=== PATIENT | male | born 1970 | race Caucasian/White ===

== ENCOUNTER 2017-04-01 18:51 | Emergency (ER) | payer OTHER ==
[~2017-04-01] VITALS: Ht 185.4 cm; Wt 111.1 kg
[2017-04-01 18:56] VITALS: BP 124/85
[2017-04-01] MEDS ORDERED: AUGMENTIN 875-1 EACH PO (23:05)
[2017-04-01] MEDS ORDERED: NAPROSYN500 M1 PO (23:06)
--- NOTE | 2017-04-01 23:06 | ED SKIN/ALLERGY COMPLAINT ---
History of Present Illness General Chief Complaint: Skin Rash/ Abcess Stated Complaint: ?CYST ON THE BACK OF NECK Source: patient Exam Limitations: no limitations Vital Signs & Intake/Output Vital Signs & Intake/Output Vital Signs Date Time Temp Pulse Resp B/P B/P Pulse O2 O2 Flow FiO2 Mean Ox Delivery Rate 04/01 1856 98.4 88 18 124/85 98 Room Air Allergies Coded Allergies: No Known Allergies (04/01/17) Triage Note: 46 YO MALE TO ER C/O ?CYST TO BACK OF NECK X2 DAYS Triage Nurses Notes Reviewed? yes Onset: Gradual Duration: day(s): (2-4) Timing: remote history Severity: moderate Severity Numbers: 5 Location: POSTERIOR NECK Possible Factors: no cause identified No Modifying Factors: none HPI: Patient is a 46-year-old male presenting to the emergency department with chief complaint of questionable abscess or skin infection on the back of his neck that he noticed between 2 and 4 days ago. Symptoms are getting worse, just not getting better. Denies fevers or chills nausea vomiting chest pain or shortness of breath. History of similar symptoms in the past with a cyst. Denies any drainage from this area. Has been applying warm compresses with little relief. (Radha Dickerson) Reconcile Medications Atorvastatin Calcium 20 MG TABLET 1 TAB PO DAILY CHOL (Reported) Lisinopril 10 MG TABLET 1 TAB PO DAILY HTN (Reported) Metformin HCl 500 MG TABLET 1 TAB PO BID DM (Reported) Naproxen (Naprosyn) 500 MG TABLET 1 TAB PO BID PRN PAIN/INFLAMMATION (Pearl PELLETIER,Opal) Past History Travel History Traveled to [place] past 21 day No Medical History Any Pertinent Medical History? see below for history Neurological: NONE EENT: NONE Cardiovascular: NONE Respiratory: NONE Gastrointestinal: NONE Hepatic: NONE Renal: NONE Musculoskeletal: NONE Psychiatric: NONE Endocrine: diabetes Blood Disorders: NONE Cancer(s): NONE PIT LABORER/Reproductive: NONE Surgical History Surgical History: non-contributory Psychosocial History What is your primary language Martiniquais Tobacco Use: Never used Family History Hx Contributory? No (Radha Dickerson) Review of Systems Review of Systems Constitutional: Reports: no symptoms. Comments Review of systems: See HPI, All other systems negative. Constitutional, no chills fever or weight loss HEENT: No visual changes no sore throat no congestion Cardiovascular: No chest pain ,palpitation , orthopnea or ankle swelling Skin, no jaundice Respiratory: No dyspnea cough sputum or hemoptysis GI: No nausea no vomiting : No dysuria No hematuria Muscle skeletal: no back pain, no neck pain, Neurologic: No numbness , no headache Psych: No stress anxiety or depression,. Heme/endocrine: No bruising no bleeding no polyuria or polydipsia Immunology: No splenectomy or history of AIDS (Radha Dickerson) Physical Exam Physical Exam General Appearance: well developed/nourished, no apparent distress, alert, awake , comfortable Comments: Well-developed well-nourished person in no acute distress HEENT: Atraumatic, normocephalic. Neck: Normal inspection, full range of motion without difficulty or pain. Respiratory: No respiratory distress. Extremity: No edema Neuro: Alert oriented x3 Skin: Erythematous, firm, indurated circular lesion, minimally raised, approximately 3 cm in diameter noted on the posterior aspect of the neck, mildly tender to palpation. No fluctuance. Psych: Mood and affect is normal, memory and judgment is normal. (Radha Dickerson) Progress Differential Diagnosis: CELLULITIS, ABSCESS, FOLLICULITIS Plan of Care: Orders Procedure Date/time Status FingerStick- Glucose 04/01 2305 Active Current Medications Sig/Pauly Start time Last Medication Dose Stop Time Status Admin Amoxicillin/ 500 MG ONCE ONE 04/01 2314 UNVr 04/01 Clavulanate Potassium 04/01 (Augmentin) Ibuprofen 600 MG ONCE ONE 04/01 2314 UNVr 04/01 (Motrin) 04/011 Comments: 04/01/2017 11:14:46 PM likely indurated cellulitis at this time, areas almost flat and nonfluctuant. I feel as if we attempt to I&D the area we will obtain little drainage from the area. Patient educated on use of warm compresses. He will be started on antibiotics. Given a first dose here in the emergency department. He was informed that things may improve or they may worsen any he may need to return for I&D. (Radha Dickerson) Departure Departure Time of Disposition: 2303 Disposition: HOME OR SELF CARE Condition: Stable Clinical Impression Primary Impression: Cellulitis Qualifiers: Site of cellulitis: unspecified site Qualified Code: L03.90 - Cellulitis, unspecified Referrals: Clinic Physician (PCP) Red PELLETIER,Dougie Armstrong Additional Instructions: Follow-up with general surgery if symptoms worsen or persist. Return for worsening symptoms or concerns. Take antibiotics as prescribed. Take anti- inflammatory as directed. Apply warm compresses several times a day. Departure Forms: Customer Survey General Discharge Information (Radha Dickerson) Departure Prescriptions: Current Visit Scripts Naproxen (Naprosyn) 1 TAB PO BID PRN PAIN/INFLAMMATION #20 TAB PA/SPIN TABLE OPERATOR Co-Sign Statement Statement: ED Attending supervision documentation- [] I saw and evaluated the patient. I have also reviewed all the pertinent lab results and diagnostic results. I agree with the findings and the plan of care as documented in the PA's/SPIN TABLE OPERATOR's documentation. [X] I have reviewed the ED Record and agree with the PA's/SPIN TABLE OPERATOR's documentation. [] Additions or exceptions (if any) to the PAs/SPIN TABLE OPERATOR's note and plan are summarized below: [] (Pearl PELLETIER,Opal)
[2017-04-01] MEDS ORDERED: METFORMIN HCL500 M3 PO (23:24)
[2017-04-01] MEDS ORDERED: LISINOPRIL10 M1 PO (23:24)
[2017-04-01] MEDS ORDERED: ATORVASTATIN CA20 M1 PO (23:24)
[2017-04-01] MEDS ORDERED: DOXYCYCLINE HY100 M2 PO (23:27)
[2017-04-02] MEDS ORDERED: AUGMENTIN 500-1 EACH PO (18:29)
== END 2017-04-01 23:27 ==
LOC: ERH 18:51
DX: L03.221 Cellulitis of neck (principal)
CPT/HCPCS: J3490